=== PATIENT | female | born 1980 | race Caucasian/White ===

== ENCOUNTER → 2019-08-15 | Outpatient (CLI) | payer OTHER ==
[2019-08-15] VITALS (13 sets, daily range): BP systolic 110–144; BP diastolic 57–83
[~2019-08-15] VITALS: Ht 160 cm; Wt 98.4 kg
[~2019-08-15] MED LIST: AIMOVIG AU70 MG/1 ML SUBQ; AMITRIPTYLINE H25 M3 PO; ATIVAN1 MG PO; GLUCOPHAGE1000 MG PO; NAPROSYN500 MG PO; RIZATRIPTAN5 M1 PO; TOPAMAX 100 MG100 MG PO; TRULICITY0.75 MG/0. SUBQ
[2019-08-15 09:10] LABS: HEMATOCRIT 42.6 % (37.0-47.0); HEMOGLOBIN 14.8 gm/dL (12.0-15.0); MCHC 34.6 g/dL (28.0-37.0); MCV 92.5 fL (80.0-100.0); MPV 6.6 fl. (7.2-11.1); NUCLEATED RBCS 0 /100WBC; PLATELET COUNT* 435 thou/uL (150-400); RBC 4.61 mil/uL (4.20-5.00); RDW-CV 13.4 % (10.5-14.5); WBC 7.6 thou/uL (4.0-11.0)
[2019-08-15 09:23] LABS: CALCIUM 10.1 mg/dL (8.5-10.1); CREATININE 0.8 mg/dL (0.6-1.3); POTASSIUM 3.9 mmol/L (3.5-5.1)
[2019-08-15 09:25] LABS: APTT 22.4 Seconds (25.0-31.3); PROTIME 10.6 Seconds (9.20-11.50)
[2019-08-15 09:45] LABS: ABSOLUTE EOSINOPHILS 0.1 thou/uL (0.0-0.7); ABSOLUTE LYMPHOCYTES 2.7 thou/uL (0.8-5.3); ABSOLUTE MONOCYTES 0.2 thou/uL (0.0-1.2); ABSOLUTE NEUTROPHILS 4.7 thou/uL (1.6-8.1); ATYPICAL LYMPHS 1 %
[2019-08-15 09:47] LABS: PLATELET ESTIMATE ADEQUATE
--- NOTE | 2019-08-28 14:07 | PATH ---
[address] [address] PATHOLOGY RPT PROCEDURE Name: NILA MARIE Room: [facility]#: [id number] Admission: 08/15/19 Date of : 82 Discharge: Report #: [id number] Path Case #: [id number] [facility] Accession Number: [id number] . 01 Material submitted: . PART A: bone - BONE MARROW BIOPSY PART B: bone - BONE MARROW CLOT PART C: bone - BONE MARROW ASPIRATE SLIDES PART D: bone - PERIPHERAL SMEAR PART E: bone - BONE MARROW FLOW . 01 Clinical history: . Thrombocytopenia . A 38-year-old woman with thrombocytosis. . 02 Diagnosis: Bone marrow aspirate, biopsy, cell clot and peripheral blood: - Peripheral blood with mild thrombocytosis. - Normocellular bone marrow with trilineage hematopoiesis, mild (no significant) dyspoiesis and no evidence of lymphoma or acute leukemia. (See comment) . (CLW:michael; 08/22/2019) . . . Special studies report received from [facility], [address] [place] [address], [address], [place], [address], on case [id number], labeled with their number [id number], dated . . Flow Cytometry: Hematologic Neoplasia Assessment . Clinical History . . Indication for Study Evaluation for thrombocytosis . Specimen Bone Marrow . Viability 87% (7AAD exclusion) . Interpretation Bone Marrow: - No evidence for myeloid left shift or an increased blast population. - No evidence for a B-cell or T-cell [place]op[place] [address] PATHOLOGY RPT PROCEDURE Name: NILA MARIE Room: [facility]#: [id number] Admission: 08/15/19 Date of : 82 Discharge: Report #: [id number] Path Case #: [id number] - Loss of CD16 expression in granulocytes. . Comments Loss of CD16 expression on neutrophilic cells can occur in association of increased cellular apoptosis, paroxysmal nocturnal hemoglobinuria (although this should be associated with loss of CD14 on the monocytes which is not the case) and variant polymorphism present in normal individuals leading to absence of CD16 on neutrophils. Although myeloid neoplasm does not typically cause 'isolated' loss of CD16; it is still a consideration since single antigenic aberrancy might be a very early sign of myeloid neoplasm. Correlation with available clinical, laboratory, and morphologic data is recommended. . Populations Analyzed Myeloid Blasts: 0.3% No significant immunophenotypic abnormalities Lymphocytes: 35.5% B-cells: 3.5%, polytypic/polyclonal sIg light chain pattern T-cells: no significant abnormalities of the markers tested CD4+ T-cells: 18.2% (including 1.4% CD57+ cells) CD8+ T-cells: 9.4% (including 2.7% CD57+ cells) CD4:CD8: 1.9 NK cells: 3.2% Neutrophilic Cells: 55% Show loss of CD16 expression. Monocytic Cells: 4.8% No significant abnormalities of the markers tested Eosinophils: 3.7% No relative increase Basophils: 0.6% No relative increase Plasma Cells: 0.0% Few detected; no overt abnormalities of the surface markers tested (plasma cells are typically underrepresented by flow cytometry; cytoplasmic light chains were not assessed) Hematogones: 0.1% Normal B-cell precursors CD45 Negative 0% No significant reactivity with the markers Events/Debris: tested (may represent unlysed red blood cells, erythroid precursors, platelets, debris, etc.) (erythroid precursors may be underrepresented due to sample lysis/processing) . Morphologic Evaluation A slide was reviewed for quality associate purposes only. . Specimen Description Cell Yield: 3.74x10 and 6 . Reagent(s) Used CD2, CD3, CD4, CD5, CD7, CD8, CD10, CD11b, CD13, CD14, CD16, CD19, CD20, CD33, CD34, CD38, CD45, CD56, CD57, CD64, CD117, HLA-DR, kappa, [place] [address] PATHOLOGY RPT PROCEDURE Name: NILA MARIE Room: [facility]#: [id number] Admission: 08/15/19 Date of : 82 Discharge: Report #: [id number] Path Case #: [id number] at [facility]. Vilma Jordan MD Pathologist . . Intended Use Flow cytometry is optimally used to immunophenotypically characterize abnormal populations when they are detected. Negative flow cytometry results do not exclude lymphoma or neoplasia. Possible false negative flow cytometry results may occur in, but are not limited to, the following: neoplastic cells in Hodgkin lymphoma are not typically adequately represented by routine clinical flow cytometry; neoplastic cells may be lost or inadequately represented due to degeneration, sample processing, sampling artifact, or patchy involvement; plasma cells are typically underrepresented by flow cytometry; immature cells/blasts may be underrepresented due to hemodilution; myeloproliferative disorders and low grade myelodysplasia may not have immunophenotypic abnormalities or increased blasts. Correlation with all available clinical, laboratory, and morphologic data is always necessary to assess for the possibility of false negative flow cytometry results and to establish a diagnosis. Each marker in this analysis was used to assess for potential antigenic abnormalities or to evaluate detected abnormalities. . Disclaimer(s) This test was performed at [facility]. at [address] [facility] [address], [place], [address] - Storage Receipt Poster: Jacky Graham MD. [facility] is a business unit of [employer] a wholly-owned subsidiary of [employer]. . Any image or images that accompany this report are solar sales representative images only and should not be used to render a diagnosis. . This test was developed and its performance characteristics determined by [facility]. It has not been cleared or approved by the Food and Drug Administration. . For inquiries, the physician may contact Lab: [phone] . A complete copy of the report is on file. . Professional services performed by [employer]. at [address], [place] [address]. Technical services performed by [employer]. at [address], [place] [address]. . (CLW:mahogany 08/19/2019) [address] [address] PATHOLOGY RPT PROCEDURE Name: NILA MARIE Room: [facility].#: [id number] Admission: 08/15/19 Date of : 82 Discharge: Report #: [id number] Path Case #: [id number] . . [facility] 08/22/2019 1313 Local . 02 Comment: Overall, the bone marrow is normocellular for the patient's age with trilineage hematopoiesis, mild (no significant) dyspoiesis and no evidence of lymphoma or acute leukemia. There is no morphologic evidence for a myeloproliferative neoplasm. Correlation with clinical history, additional laboratory data and cytogenetics is recommended. . (CLW:mmkenna; 08/22/2019) . 02 Addendum: . Special studies report received from [facility], [address] [place] [address], [address], [place], [address], on case [id number], labeled with their number [id number], dated 08/26/2019. . Cytogenetic Analysis Report . RESULT: Normal Female Karyotype 46,XX(20) . Specimen Type: Bone Marrow . Indication for Study: Thrombocytosis . INTERPRETATION: Cytogenetic analysis revealed no evidence of an acquired clonal abnormality. These findings should be interpreted in the context of clinical and pathologic findings. . See Flow Cytometry report [id number] for further information. . Number of Metaphases Counted: 20 Banding: G-banding Number of Metaphase Cells Analyzed: 20 Band Level: 375 Number of Metaphase Cells Karyotyped: 2 Cultures Established: 24/48 hour unstimulated . at [facility]. Caridad Guzmán, Ph.D., [facility] Director of Cytogenetics and Molecular Oncology . . Disclaimer This Test was performed by [facility]. at [address] [place] [address], [facility] [place] [address] PATHOLOGY RPT PROCEDURE Name: NILA MARIE Room: [facility]#: [id number] Admission: 08/15/19 Date of : 82 Discharge: Report #: [id number] Path Case #: [id number] [facility] is a business unit of [employer] a wholly-owned subsidiary of [employer]. . . Any image(s) that accompany this report is/are a solar sales representative image(s) only and should not be used to render a diagnosis. . Based on the resolution of this study, standard cytogenetic methodology does not routinely detect subtle or sub-microscopic rearrangements or low level mosaicism. . A complete copy of the report is on file. . Professional services performed by [employer]. at [address], [place] [address]. Technical services performed by [employer]. at [address], [place] [address]. . (MLK:amj 08/26/2019) . . . AZJ/08/26/2019 Addendum Electronically Signed by Mirza Hernandez MD, Pathologist . 02 Electronically signed: . Malena Garcia MD, Pathologist NPI- [id number] . 01 Gross description: . A. Received in formalin labeled "Nila aMrie, core, BM," is a single needle core of wise bone measuring 0.8 cm in length and 0.2 cm in diameter. The specimen is submitted entirely in cassette A1, following decalcification. . B. Received in formalin labeled "Nila Marie, clot," is an aggregate of dark wise blood clot measuring 3.0 x 1.8 x 0.7 cm. The specimen is filtered and entirely submitted in cassette B1 and B2. (TSD; 08/15/2019) TOB/TOB 08/23/2019 0048 Local . 02 Microscopic: . CBC Data (08/15/19): WBC 7,600 /uL, RBC 4.61, hemoglobin 14.8 g/dL, hematocrit 42.6%, MCV 92.5 fL, MCH 32.0 pg, MCHC 34.6 g/dL, RDW 13.4%, and platelet count 435,000 /uL. White blood cell differential: segs 61%, bands 1%, lymphs 34%, monos 2%, eos 1%, and atypical lymphs 1%. . Peripheral Blood Smear: [place] [address] PATHOLOGY RPT PROCEDURE Name: NILA MARIE Room: [facility]#: [id number] Admission: 08/15/19 Date of : 82 Discharge: Report #: [id number] Path Case #: [id number] Cytomorphological examination of the Moncada's stained peripheral blood smear confirms the provided data. Red blood cells are normocytic and are without significant anisopoikilocytosis. White blood cells are predominantly segmented neutrophils and are without significant dyspoiesis or significant left shift. Lymphocytes are predominantly small, round, and mature appearing with condensed chromatin and scant cytoplasm with admixed large granular lymphocytes. On scanning, no markedly atypical lymphoid cells are seen. Monocytes are mature. Platelets are adequate (mildly increased) in number and mainly normal in morphology with rare larger platelets noted. . Aspirate Smears: Cytomorphological examination of the Moncada's stained aspirate smears shows spicules present. The overall cellularity is approximately 70%. The myeloid to erythroid ratio is 2:1. Full myeloid maturation is identified and is without significant dyspoiesis. Erythroid maturation is mildly dyserythropoietic with irregular nuclear contours. In a 500 cell differential, there are 2% blasts (no Juan Alberto rods are seen), 57% more differentiated myeloids, 23% erythroid precursors, 16% lymphocytes and 2% plasma cells. Megakaryocytes are proportional in number and both normal and abnormal in morphology with variable sizes and nuclear abnormalities. No lymphoid aggregates or markedly atypical lymphoid cells are seen. Plasma cells are without atypia. Iron stain of the aspirate smear shows 0/4+ iron positivity with only rare disrupted spicules present. No ringed sideroblasts are identified. . Core Biopsy and Cell Clot: The decalcified bone marrow core biopsy is adequate. The bone marrow is normocellular with an overall cellularity of approximately 70%. Significant aspiration artifact is noted. The myeloid to erythroid ratio is 2:1. Myeloid and erythroid maturation are without significant dyspoiesis. Megakaryocytes are normal in number and both normal and abnormal in morphology. No lymphoid aggregates or markedly atypical lymphoid cells are seen. Bony trabeculae and blood vessels are unremarkable. The cell clot has spicules present that are similar in cellularity and differential morphology as previously described. . Properly controlled special stains are performed. . Block A1: Iron - 0/4+ iron positivity; Reticulin - No significant reticulin fibrosis. . Block B1: Iron - 1/4+ iron positivity with spicules present. . Flow Cytometry: Flow cytometric immunophenotypic analysis was performed at [facility]. The diagnosis is "no evidence for myeloid [place] [address] PATHOLOGY RPT PROCEDURE Name: NILA MARIE Room: [facility]#: [id number] Admission: 08/15/19 Date of : 82 Discharge: Report #: [id number] Path Case #: [id number] increased blast population, no evidence for a B-cell or T-cell lymphoproliferative disorder, lots of CD16 expression and granulocytes." There are 0.3% myeloid blasts. There are 35.5% lymphocytes. Of the lymphocytes, there are 3.5% polyclonal B-cells. T-cells have a CD4/CD8 ratio of 1.9 and no aberrant T-cell antigen expression. There is 55% granulocytes that show loss of CD16 expression. Please see separate flow cytometry report from [facility] ([id number]). . Cytogenetics Analysis: Cytogenetic chromosomal analysis is pending at [facility] ([id number]). . (CLW:mml; 08/22/2019) . 02 Pathologist provided ICD-10: D47.3 . 02 CPT . 967480, 925185, 622260, 059306, 172699, 072595, 096805, 310814, 000020 Specimen Comment: A courtesy copy of this report has been sent to [phone], [phone] Specimen Comment: [phone], Specimen Comment: Report sent to ,DR HUSAIN / DR LOWE Specimen Comment: A duplicate report has been generated due to demographic updates. Performed at: 01 [facility] [address] [id number] MD Hamzah Johnson MD Phone: [phone] Performed at: 02 [facility] [address] [id number] MD Riley Ramsey MD Phone: [phone]
== END | disposition home or self-care (01) ==
LOC: M.CT 08-14 09:00 → M.INT 08-14 11:00 → M.CT 08:18
PROVIDERS: Radiology Diagnostic Radiology
DX: D47.3 Essential (hemorrhagic) thrombocythemia (principal); D75.89 Other specified diseases of blood and blood-forming organs; D70.4 Cyclic neutropenia; F41.9 Anxiety disorder, unspecified; F32.9 Major depressive disorder, single episode, unspecified; Z98.890 Other specified postprocedural states; Z79.899 Other long term (current) drug therapy; Z88.8 Allergy status to other drugs, medicaments and biological substances

== ENCOUNTER 2019-09-17 00:25 | Emergency (ER) | payer OTHER ==
[~2019-09-17] VITALS: Ht 160 cm; Wt 99.8 kg
[2019-09-17 01:32] LABS: ABSOLUTE EOSINOPHILS 0.1 thou/uL (0.0-0.7); ABSOLUTE LYMPHOCYTES 2.6 thou/uL (0.8-5.3); ABSOLUTE MONOCYTES 0.8 thou/uL (0.0-1.2); BASOPHILS 0.4 %; EOSINOPHILS 1.3 %; HEMATOCRIT 39.8 % (37.0-47.0); HEMOGLOBIN 13.6 gm/dL (12.0-15.0); LYMPHOCYTES 30.8 %; MCH 31.3 pg (26.0-34.0); MCHC 34.3 g/dL (28.0-37.0); MCV 91.4 fL (80.0-100.0); MPV 7.2 fl. (7.2-11.1); NUCLEATED RBCS 0 /100WBC; PLATELET COUNT* 387 thou/uL (150-400); POLYS 58.5 %; RBC 4.35 mil/uL (4.20-5.00); WBC 8.5 thou/uL (4.0-11.0)
[2019-09-17 01:36] LABS: CALCIUM 8.2 mg/dL (8.5-10.1); CREATININE 0.7 mg/dL (0.6-1.3); POTASSIUM 4.4 mmol/L (3.5-5.1)
[2019-09-17 01:41] LABS: ALBUMIN 3.8 g/dL (3.4-5.0); TOTAL BILIRUBIN 0.3 mg/dL (<0.1-1.0)
[2019-09-17 02:21] VITALS: BP 95/62
== END 2019-09-17 02:21 | disposition home or self-care (01) ==
LOC: M.ERS 00:25
PROVIDERS: Family Medicine
DX: G43.909 Migraine, unspecified, not intractable, without status migrainosus (principal); Z98.890 Other specified postprocedural states; Z88.8 Allergy status to other drugs, medicaments and biological substances

== ENCOUNTER → 2019-09-25 | Outpatient (CLI) | payer OTHER ==
[2019-09-25 07:44] LABS: ABSOLUTE LYMPHOCYTES 1.7 thou/uL (0.8-5.3); ABSOLUTE MONOCYTES 0.5 thou/uL (0.0-1.2); ABSOLUTE NEUTROPHILS 5.3 thou/uL (1.6-8.1); BASOPHILS 0.3 %; EOSINOPHILS 0.5 %; HEMATOCRIT 41.8 % (37.0-47.0); HEMOGLOBIN 14.4 gm/dL (12.0-15.0); LYMPHOCYTES 22.5 %; MCH 31.6 pg (26.0-34.0); MCHC 34.5 g/dL (28.0-37.0); MCV 91.8 fL (80.0-100.0); MONOCYTES 6.3 %; MPV 6.8 fl. (7.2-11.1); NUCLEATED RBCS 0 /100WBC; PLATELET COUNT* 417 thou/uL (150-400); POLYS 70.4 %; RBC 4.56 mil/uL (4.20-5.00); RDW-CV 13.2 % (10.5-14.5); WBC 7.5 thou/uL (4.0-11.0)
[2019-09-25 07:55] LABS: ALKALINE PHOSPHATASE 74 U/L (46-116); ANION GAP 10 mmol/L (7-16); BUN 12 mg/dL (7-18); CALCIUM 8.7 mg/dL (8.5-10.1); CHLORIDE 104 mmol/L (98-107); CHOLESTEROL 165 mg/dL (<200); CO2 26 mmol/L (21-32); CREATININE 0.8 mg/dL (0.6-1.3); GLUCOSE 102 mg/dL (70-99); HDL CHOLESTEROL 39 mg/dL (>40); LDL CHOLESTEROL 108 mg/dL (<100); POTASSIUM 4.1 mmol/L (3.5-5.1); SGOT 19 U/L (15-37); SGPT 29 U/L (30-65); SODIUM 140 mmol/L (136-145); TC:HDL 4.2 Ratio (Not establshd); TOTAL BILIRUBIN 0.6 mg/dL (<0.1-1.0); TOTAL PROTEIN 7.9 g/dL (6.4-8.2); TRIGLYCERIDE 93 mg/dL (<150); VLDL 19 mg/dL (<40)
[2019-09-25 07:56] LABS: SERUM ASSESSMENT Clear
[2019-09-26 02:08] LABS: GLYCOHEMOGLOBIN (HGB A1C) 5.6 % (4.8-5.6)
== END ==
LOC: M.LAB 07:21
PROVIDERS: Family Medicine
DX: J01.90 Acute sinusitis, unspecified (principal); R19.5 Other fecal abnormalities; K62.5 Hemorrhage of anus and rectum; E11.9 Type 2 diabetes mellitus without complications; G43.009 Migraine without aura, not intractable, without status migrainosus

== ENCOUNTER → 2019-11-27 | Outpatient (CLI) | payer OTHER | LOC: M.LAB 12:21 | PROVIDERS: ATTEND Family Medicine | DX: Z03.818 Encounter for observation for suspected exposure to other biological agents ruled out (principal) ==

== ENCOUNTER → 2020-01-01 | Outpatient (CLI) | payer OTHER ==
[2020-01-01 13:56] LABS: ABSOLUTE LYMPHOCYTES 2.4 thou/uL (0.8-5.3); ABSOLUTE MONOCYTES 0.4 thou/uL (0.0-1.2); BASOPHILS 0.6 %; EOSINOPHILS 0.5 %; HEMATOCRIT 42.2 % (37.0-47.0); HEMOGLOBIN 14.6 gm/dL (12.0-15.0); LYMPHOCYTES 34.5 %; MCH 31.8 pg (26.0-34.0); MCHC 34.6 g/dL (28.0-37.0); MCV 91.9 fL (80.0-100.0); MONOCYTES 6.4 %; NUCLEATED RBCS 0 /100WBC; PLATELET COUNT* 457 thou/uL (150-400); RDW-CV 12.9 % (10.5-14.5); WBC 6.9 thou/uL (4.0-11.0)
[2020-01-01 14:22] LABS: % SATURATION 21 % (20-39); IRON 64 ug/dL (50-175)
== END ==
LOC: M.LAB 13:11
PROVIDERS: Internal Medicine Hematology & Oncology
DX: D47.3 Essential (hemorrhagic) thrombocythemia (principal); E61.1 Iron deficiency

== ENCOUNTER → 2020-02-19 | Outpatient (CLI) | payer OTHER | LOC: M.LAB 11:11 | DX: O34.81 Maternal care for other abnormalities of pelvic organs, first trimester (principal); O34.41 Maternal care for other abnormalities of cervix, first trimester; N83.202 Unspecified ovarian cyst, left side; Z3A.01 Less than 8 weeks gestation of pregnancy; Z64.0 Problems related to unwanted pregnancy ==

== ENCOUNTER 2020-03-18 13:30 | Emergency (ER) | payer OTHER ==
[~2020-03-18] VITALS: Ht 157.5 cm; Wt 96.2 kg
[2020-03-18] MEDS ORDERED: TIZANIDINE HCL 22 M1 PO (13:41)
[2020-03-18] MEDS ORDERED: LEVO-T50 MCG PO (13:41)
[2020-03-18] MEDS ORDERED: SLOW FE142 MG PO (13:41)
[2020-03-18 14:31] LABS: ABSOLUTE LYMPHOCYTES 1.9 thou/uL (0.8-5.3); ABSOLUTE MONOCYTES 0.4 thou/uL (0.0-1.2); ABSOLUTE NEUTROPHILS 4.2 thou/uL (1.6-8.1); BASOPHILS 0.5 %; EOSINOPHILS 0.4 %; HEMATOCRIT 42.8 % (37.0-47.0); HEMOGLOBIN 14.6 gm/dL (12.0-15.0); MCH 31.6 pg (26.0-34.0); MCHC 34.2 g/dL (28.0-37.0); MCV 92.4 fL (80.0-100.0); MONOCYTES 6.2 %; MPV 7.1 fl. (7.2-11.1); NUCLEATED RBCS 0 /100WBC; PLATELET COUNT* 414 thou/uL (150-400); POLYS 63.9 %; RBC 4.63 mil/uL (4.20-5.00); RDW-CV 13.3 % (10.5-14.5); WBC 6.5 thou/uL (4.0-11.0)
[2020-03-18 14:38] LABS: CALCIUM 9.3 mg/dL (8.5-10.1); CREATININE 0.9 mg/dL (0.6-1.3); POTASSIUM 4.7 mmol/L (3.5-5.1)
[2020-03-18 14:43] LABS: TOTAL BILIRUBIN 0.4 mg/dL (<0.1-1.0); TOTAL PROTEIN 7.8 g/dL (6.4-8.2)
[2020-03-18] MEDS ORDERED: HYDROXYZINE PAM25 M1 PO (16:45)
[2020-03-18] MEDS ORDERED: MEDROLDOSEPACK PO (16:45)
[2020-03-18 16:56] VITALS: BP 136/97
== END 2020-03-18 16:57 | disposition home or self-care (01) ==
LOC: M.ERS 13:30
PROVIDERS: Personal Emergency Response Attendant
DX: R22.0 Localized swelling, mass and lump, head (principal); T50.995A Adverse effect of other drugs, medicaments and biological substances, initial encounter; G43.909 Migraine, unspecified, not intractable, without status migrainosus; Z98.890 Other specified postprocedural states; Z88.8 Allergy status to other drugs, medicaments and biological substances; Y92.89 Other specified places as the place of occurrence of the external cause

== ENCOUNTER → 2020-04-06 | Outpatient (CLI) | payer OTHER ==
[~2020-04-06] MED LIST changes: +HYDROXYZINE PAM25 M1 PO; +LEVO-T50 MCG PO; +MEDROLDOSEPACK PO; +SLOW FE142 MG PO; +TIZANIDINE HCL 22 M1 PO
== END ==
LOC: M.LAB 12:03
PROVIDERS: ATTEND Internal Medicine Gastroenterology
DX: Z01.812 Encounter for preprocedural laboratory examination (principal); Z20.828 Contact with and (suspected) exposure to other viral communicable diseases; K31.84 Gastroparesis

== ENCOUNTER 2020-05-25 07:06 | Emergency (ER) | payer OTHER ==
[~2020-05-25] VITALS: Ht 160 cm; Wt 93.9 kg
[2020-05-25] MEDS ORDERED: ZOFRAN4 MG PO (07:21)
[2020-05-25] MEDS ORDERED: BENTYL 10 MG CA10 M1 PO (07:21)
[2020-05-25] MEDS ORDERED: COMPAZINE10 MG PO (07:21)
[2020-05-25] MEDS ORDERED: ATIVAN0.5 M1 PO (07:22)
[2020-05-25] MEDS ORDERED: AMBIEN CR12.5 MG PO (07:22)
[2020-05-25 08:01] LABS: URINE BILIRUBIN NEGATIVE (Negative); URINE BLOOD TRACE (Negative); URINE CLARITY CLEAR; URINE COLOR YELLOW; URINE GLUCOSE-RANDOM NEGATIVE (Negative); URINE KETONES NEGATIVE (Negative); URINE LEUKOCYTES-REFLEX NEGATIVE (Negative); URINE NITRITE-REFLEX NEGATIVE (Negative); URINE PROTEIN NEGATIVE (Negative); URINE SPECIFIC GRAVITY <= 1.005 (1.005-1.030); URINE UROBILINOGEN 0.2 E.U./dl (0.2-1.0)
[2020-05-25 08:07] LABS: ABSOLUTE LYMPHOCYTES 1.8 thou/uL (0.8-5.3); ABSOLUTE MONOCYTES 0.7 thou/uL (0.0-1.2); ABSOLUTE NEUTROPHILS 5.4 thou/uL (1.6-8.1); BASOPHILS 0.6 %; EOSINOPHILS 0.5 %; HEMATOCRIT 46.2 % (37.0-47.0); HEMOGLOBIN 15.5 gm/dL (12.0-15.0); LYMPHOCYTES 22.5 %; MCH 30.5 pg (26.0-34.0); MCHC 33.6 g/dL (28.0-37.0); MCV 90.7 fL (80.0-100.0); MPV 7.1 fl. (7.2-11.1); NUCLEATED RBCS 0 /100WBC; PLATELET COUNT* 364 thou/uL (150-400); POLYS 67.4 %; RBC 5.09 mil/uL (4.20-5.00); RDW-CV 13.2 % (10.5-14.5)
[2020-05-25 08:15] LABS: CALCIUM 10.1 mg/dL (8.5-10.1); POTASSIUM 4.1 mmol/L (3.5-5.1)
[2020-05-25 08:20] LABS: ALBUMIN 4.1 g/dL (3.4-5.0); TOTAL BILIRUBIN 0.7 mg/dL (<0.1-1.0); TOTAL PROTEIN 7.9 g/dL (6.4-8.2)
[2020-05-25 09:46] VITALS: BP 122/92
--- NOTE | 2020-05-25 09:58 | EKG ---
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
== END 2020-05-25 09:47 | disposition home or self-care (01) ==
LOC: M.ERS 07:06
PROVIDERS: Family Medicine
DX: R10.13 Epigastric pain (principal); R11.2 Nausea with vomiting, unspecified; R10.30 Lower abdominal pain, unspecified; G43.909 Migraine, unspecified, not intractable, without status migrainosus; E11.43 Type 2 diabetes mellitus with diabetic autonomic (poly)neuropathy; K31.84 Gastroparesis; Z88.8 Allergy status to other drugs, medicaments and biological substances; Z98.890 Other specified postprocedural states; Z98.51 Tubal ligation status

== ENCOUNTER → 2020-06-05 | Outpatient (CLI) | payer OTHER ==
[~2020-06-05] MED LIST changes: +AMBIEN CR12.5 MG PO; +ATIVAN0.5 M1 PO; +BENTYL 10 MG CA10 M1 PO; +COMPAZINE10 MG PO; +ZOFRAN4 MG PO
[2020-06-05 07:37] LABS: ABSOLUTE EOSINOPHILS 0.1 thou/uL (0.0-0.7); ABSOLUTE LYMPHOCYTES 1.5 thou/uL (0.8-5.3); ABSOLUTE MONOCYTES 0.6 thou/uL (0.0-1.2); ABSOLUTE NEUTROPHILS 5.7 thou/uL (1.6-8.1); BASOPHILS 0.6 %; EOSINOPHILS 0.6 %; HEMATOCRIT 45.5 % (37.0-47.0); HEMOGLOBIN 15.3 gm/dL (12.0-15.0); LYMPHOCYTES 18.9 %; MCH 31.1 pg (26.0-34.0); MCHC 33.7 g/dL (28.0-37.0); MCV 92.2 fL (80.0-100.0); MONOCYTES 7.6 %; NUCLEATED RBCS 0 /100WBC; PLATELET COUNT* 403 thou/uL (150-400); POLYS 72.3 %; RBC 4.93 mil/uL (4.20-5.00); WBC 7.9 thou/uL (4.0-11.0)
[2020-06-05 07:46] LABS: CALCIUM 9.4 mg/dL (8.5-10.1); CREATININE 0.7 mg/dL (0.6-1.3); POTASSIUM 4.1 mmol/L (3.5-5.1)
[2020-06-06 02:06] LABS: GLYCOHEMOGLOBIN (HGB A1C) 5.7 % (4.8-5.6)
== END ==
LOC: M.LAB 07:08
PROVIDERS: ATTEND Internal Medicine Gastroenterology
DX: K31.84 Gastroparesis (principal)

== ENCOUNTER → 2020-09-11 | Outpatient (CLI) | payer OTHER | LOC: M.LAB 16:03 | PROVIDERS: ATTEND Internal Medicine Gastroenterology | DX: Z01.812 Encounter for preprocedural laboratory examination (principal); Z20.822 Contact with and (suspected) exposure to COVID-19; K31.84 Gastroparesis ==

== ENCOUNTER → 2020-10-07 | Outpatient (CLI) | payer OTHER | LOC: M.NUC 09-03 15:02 → M.LAB 06:49 → M.NUC 06:49 | DX: R11.2 Nausea with vomiting, unspecified (principal) ==

== ENCOUNTER → 2020-11-05 | Outpatient (CLI) | payer OTHER | LOC: M.CT 11:49 | PROVIDERS: ATTEND Family Medicine | DX: J98.11 Atelectasis (principal); R07.1 Chest pain on breathing; R79.81 Abnormal blood-gas level ==

== ENCOUNTER 2020-11-23 12:28 | Emergency (ER) | payer OTHER ==
[~2020-11-23] VITALS: Ht 157.5 cm; Wt 85.7 kg
[2020-11-23] MEDS ORDERED: REMERON15 M1 PO (12:43)
[2020-11-23 13:36] LABS: URINE BILIRUBIN NEGATIVE (Negative); URINE BLOOD NEGATIVE (Negative); URINE CLARITY CLEAR; URINE COLOR YELLOW; URINE GLUCOSE-RANDOM NEGATIVE (Negative); URINE KETONES NEGATIVE (Negative); URINE LEUKOCYTES-REFLEX NEGATIVE (Negative); URINE NITRITE-REFLEX NEGATIVE (Negative); URINE PROTEIN NEGATIVE (Negative); URINE SPECIFIC GRAVITY <= 1.005 (1.005-1.030); URINE UROBILINOGEN 0.2 E.U./dl (0.2-1.0)
[2020-11-23 13:39] LABS: AMP/METHAMP Negative (Negative); BARBITURATES Negative (Negative); BENZODIAZEPINES Negative (Negative); COCAINE Negative (Negative); METHADONE Negative (Negative); OPIATES Negative (Negative); PCP Negative (Negative); THC Negative (Negative)
[2020-11-23 13:47] LABS: ABSOLUTE LYMPHOCYTES 1.7 thou/uL (0.8-5.3); ABSOLUTE MONOCYTES 0.7 thou/uL (0.0-1.2); ABSOLUTE NEUTROPHILS 4.6 thou/uL (1.6-8.1); BASOPHILS 0.3 %; EOSINOPHILS 0.4 %; HEMOGLOBIN 14.4 gm/dL (12.0-15.0); LYMPHOCYTES 24.2 %; MCH 31.2 pg (26.0-34.0); MCHC 33.6 g/dL (28.0-37.0); MONOCYTES 9.5 %; MPV 6.7 fl. (7.2-11.1); NUCLEATED RBCS 0 /100WBC; PLATELET COUNT* 369 thou/uL (150-400); POLYS 65.6 %; RBC 4.63 mil/uL (4.20-5.00); RDW-CV 12.9 % (10.5-14.5)
[2020-11-23 13:57] LABS: CALCIUM 9.2 mg/dL (8.5-10.1); CREATININE 0.8 mg/dL (0.6-1.3); POTASSIUM 3.8 mmol/L (3.5-5.1)
[2020-11-23 14:07] LABS: ALBUMIN 4.1 g/dL (3.4-5.0); MAGNESIUM 2.1 mg/dL (1.8-2.4); TOTAL BILIRUBIN 0.4 mg/dL (<0.1-1.0); TOTAL PROTEIN 7.9 g/dL (6.4-8.2)
[2020-11-23] MEDS ORDERED: NORCO5 PO (16:17)
[2020-11-23] MEDS ORDERED: BENTYL 10 MG CA10 M1 PO (16:17)
[2020-11-23 16:40] VITALS: BP 118/73
--- NOTE | 2020-11-24 14:13 | EKG ---
[place] [address] ELECTROCARDIOGRAM REPORT Name: NILA BOWLES Room: 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
== END 2020-11-23 16:40 | disposition home or self-care (01) ==
LOC: M.ERS 12:28
PROVIDERS: Nurse Practitioner Family
DX: N88.9 Noninflammatory disorder of cervix uteri, unspecified (principal); R07.89 Other chest pain; R10.13 Epigastric pain; G43.909 Migraine, unspecified, not intractable, without status migrainosus; E11.43 Type 2 diabetes mellitus with diabetic autonomic (poly)neuropathy; K31.84 Gastroparesis; Z98.51 Tubal ligation status; Z88.8 Allergy status to other drugs, medicaments and biological substances; Z98.890 Other specified postprocedural states; Z79.899 Other long term (current) drug therapy

== ENCOUNTER → 2020-12-01 | Outpatient (CLI) | payer OTHER ==
[~2020-12-01] MED LIST changes: +NORCO5 PO; +REMERON15 M1 PO
[2020-12-01 07:39] LABS: ABSOLUTE LYMPHOCYTES 1.5 thou/uL (0.8-5.3); ABSOLUTE MONOCYTES 0.6 thou/uL (0.0-1.2); ABSOLUTE NEUTROPHILS 3.4 thou/uL (1.6-8.1); BASOPHILS 0.3 %; EOSINOPHILS 0.7 %; HEMOGLOBIN 14.4 gm/dL (12.0-15.0); LYMPHOCYTES 27.5 %; MCH 30.9 pg (26.0-34.0); MCHC 33.4 g/dL (28.0-37.0); MCV 92.6 fL (80.0-100.0); MONOCYTES 10.6 %; MPV 6.7 fl. (7.2-11.1); NUCLEATED RBCS 0 /100WBC; PLATELET COUNT* 357 thou/uL (150-400); POLYS 60.9 %; RBC 4.65 mil/uL (4.20-5.00); RDW-CV 12.7 % (10.5-14.5); WBC 5.6 thou/uL (4.0-11.0)
[2020-12-01 07:50] LABS: ALKALINE PHOSPHATASE 81 U/L (46-116); ANION GAP 9 mmol/L (7-16); BUN 14 mg/dL (7-18); CALCIUM 8.9 mg/dL (8.5-10.1); CHLORIDE 102 mmol/L (98-107); CHOLESTEROL 152 mg/dL (<200); CO2 28 mmol/L (21-32); CREATININE 0.8 mg/dL (0.6-1.3); GLUCOSE 92 mg/dL (70-99); HDL CHOLESTEROL 46 mg/dL (>40); LDL CHOLESTEROL 83 mg/dL (<100); POTASSIUM 3.8 mmol/L (3.5-5.1); SERUM ASSESSMENT Clear; SGOT 22 U/L (15-37); SGPT 39 U/L (30-65); SODIUM 139 mmol/L (136-145); TC:HDL 3.3 Ratio (Not establshd); TOTAL BILIRUBIN 0.5 mg/dL (<0.1-1.0); TOTAL PROTEIN 8.1 g/dL (6.4-8.2); TRIGLYCERIDE 116 mg/dL (<150); VLDL 23 mg/dL (<40)
[2020-12-01 23:23] LABS: GLYCOHEMOGLOBIN (HGB A1C) 5.5 % (4.8-5.6)
== END ==
LOC: M.LAB 07:10
PROVIDERS: ATTEND Family Medicine
DX: K31.84 Gastroparesis (principal); D47.3 Essential (hemorrhagic) thrombocythemia; F41.9 Anxiety disorder, unspecified; G43.009 Migraine without aura, not intractable, without status migrainosus; R10.84 Generalized abdominal pain; G47.00 Insomnia, unspecified; F51.5 Nightmare disorder; F43.10 Post-traumatic stress disorder, unspecified; E03.9 Hypothyroidism, unspecified; D50.9 Iron deficiency anemia, unspecified

== ENCOUNTER → 2020-12-14 | Outpatient (CLI) | payer OTHER | LOC: M.ULTRA 12-02 16:00 | PROVIDERS: ATTEND Family Medicine | DX: Z01.419 Encounter for gynecological examination (general) (routine) without abnormal findings (principal); N88.8 Other specified noninflammatory disorders of cervix uteri; N92.0 Excessive and frequent menstruation with regular cycle ==

== ENCOUNTER → 2021-02-03 | Outpatient (CLI) | payer OTHER | LOC: M.LAB 12:55 | PROVIDERS: ATTEND Family Medicine | DX: E03.9 Hypothyroidism, unspecified (principal) ==

== ENCOUNTER 2021-02-15 08:43 | Emergency (ER) | payer OTHER ==
[~2021-02-15] VITALS: Ht 157.5 cm; Wt 88.0 kg
[~2021-02-15 08:43] MED LIST changes: -CITRATE OF MAG296 M1 PO; -FAMOTIDINE20 MG PO; -WELLBUTRIN XL300 MG PO; -ZOFRAN ODT4 MG DISSOLVE
[2021-02-15] MEDS ORDERED: FAMOTIDINE20 MG PO (09:03)
[2021-02-15] MEDS ORDERED: WELLBUTRIN XL300 MG PO (09:03)
[2021-02-15 09:35] LABS: URINE BILIRUBIN NEGATIVE (Negative); URINE BLOOD NEGATIVE (Negative); URINE CLARITY CLEAR; URINE COLOR YELLOW; URINE GLUCOSE-RANDOM NEGATIVE (Negative); URINE KETONES NEGATIVE (Negative); URINE LEUKOCYTES-REFLEX NEGATIVE (Negative); URINE NITRITE-REFLEX NEGATIVE (Negative); URINE PROTEIN NEGATIVE (Negative); URINE UROBILINOGEN 0.2 E.U./dl (0.2-1.0)
[2021-02-15 09:46] LABS: ABSOLUTE MONOCYTES 0.5 thou/uL (0.0-1.2); ABSOLUTE NEUTROPHILS 3.3 thou/uL (1.6-8.1); BASOPHILS 0.4 %; EOSINOPHILS 0.7 %; HEMATOCRIT 45.4 % (37.0-47.0); HEMOGLOBIN 15.4 gm/dL (12.0-15.0); LYMPHOCYTES 34.1 %; MCH 31.8 pg (26.0-34.0); MCV 93.5 fL (80.0-100.0); MONOCYTES 8.1 %; MPV 6.7 fl. (7.2-11.1); NUCLEATED RBCS 0 /100WBC; PLATELET COUNT* 391 thou/uL (150-400); POLYS 56.7 %; RBC 4.86 mil/uL (4.20-5.00); RDW-CV 12.9 % (10.5-14.5); WBC 5.7 thou/uL (4.0-11.0)
[2021-02-15 10:03] LABS: CALCIUM 8.8 mg/dL (8.5-10.1); CREATININE 0.8 mg/dL (0.6-1.3); POTASSIUM 4.4 mmol/L (3.5-5.1)
[2021-02-15 10:08] LABS: ALBUMIN 4.1 g/dL (3.4-5.0); TOTAL BILIRUBIN 0.4 mg/dL (<0.1-1.0); TOTAL PROTEIN 7.8 g/dL (6.4-8.2)
[2021-02-15] MEDS ORDERED: ZOFRAN ODT4 MG DISSOLVE (11:39)
[2021-02-15] MEDS ORDERED: BENTYL 10 MG CA10 M1 PO (11:39)
[2021-02-15] MEDS ORDERED: CITRATE OF MAG296 M1 PO (11:39)
[2021-02-15 11:51] VITALS: BP 123/70
== END 2021-02-15 11:53 | disposition home or self-care (01) ==
LOC: M.ERS 08:43
PROVIDERS: Emergency Medicine Emergency Medical Services
DX: K59.00 Constipation, unspecified (principal); G43.909 Migraine, unspecified, not intractable, without status migrainosus; E11.43 Type 2 diabetes mellitus with diabetic autonomic (poly)neuropathy; K31.84 Gastroparesis; Z98.890 Other specified postprocedural states; Z88.8 Allergy status to other drugs, medicaments and biological substances

== ENCOUNTER → 2021-02-15 | Outpatient (CLI) | payer OTHER ==
[~2021-02-15] MED LIST changes: +CITRATE OF MAG296 M1 PO; +FAMOTIDINE20 MG PO; +WELLBUTRIN XL300 MG PO; +ZOFRAN ODT4 MG DISSOLVE
== END ==
LOC: M.ULTRA 07:30
PROVIDERS: ATTEND Nurse Practitioner
DX: R10.13 Epigastric pain (principal); R11.2 Nausea with vomiting, unspecified

== ENCOUNTER → 2021-02-24 | Outpatient (CLI) | payer OTHER ==
[~2021-02-24] MED LIST changes: +CITRATE OF MAG296 M1 PO; +FAMOTIDINE20 MG PO; +WELLBUTRIN XL300 MG PO; +ZOFRAN ODT4 MG DISSOLVE
== END ==
LOC: M.CT 14:43
PROVIDERS: ATTEND Nurse Practitioner
DX: K76.0 Fatty (change of) liver, not elsewhere classified (principal); Z90.49 Acquired absence of other specified parts of digestive tract; R93.89 Abnormal findings on diagnostic imaging of other specified body structures; R11.0 Nausea

== ENCOUNTER → 2021-05-12 | Outpatient (CLI) | payer OTHER | LOC: M.CT 04-28 15:00 | PROVIDERS: ATTEND Family Medicine | DX: M47.816 Spondylosis without myelopathy or radiculopathy, lumbar region (principal); M47.817 Spondylosis without myelopathy or radiculopathy, lumbosacral region; M48.07 Spinal stenosis, lumbosacral region; M48.05 Spinal stenosis, thoracolumbar region; M48.061 Spinal stenosis, lumbar region without neurogenic claudication ==

== ENCOUNTER → 2021-05-19 | Outpatient (CLI) | payer OTHER | LOC: M.RAD 11:50 | PROVIDERS: ATTEND Family Medicine | DX: Z12.31 Encounter for screening mammogram for malignant neoplasm of breast (principal) ==

== ENCOUNTER → 2021-07-05 | Outpatient (CLI) | payer OTHER ==
[2021-07-05 11:33] LABS: ABSOLUTE LYMPHOCYTES 1.7 thou/uL (0.8-5.3); ABSOLUTE MONOCYTES 0.4 thou/uL (0.0-1.2); ABSOLUTE NEUTROPHILS 3.4 thou/uL (1.6-8.1); BASOPHILS 0.5 %; EOSINOPHILS 0.3 %; HEMATOCRIT 42.4 % (37.0-47.0); HEMOGLOBIN 14.4 gm/dL (12.0-15.0); LYMPHOCYTES 31.6 %; MCH 32.2 pg (26.0-34.0); MCHC 34.1 g/dL (28.0-37.0); MCV 94.5 fL (80.0-100.0); MONOCYTES 6.8 %; MPV 6.6 fl. (7.2-11.1); NUCLEATED RBCS 0 /100WBC; PLATELET COUNT* 406 thou/uL (150-400); POLYS 60.8 %; RBC 4.48 mil/uL (4.20-5.00); RDW-CV 13.6 % (10.5-14.5); WBC 5.5 thou/uL (4.0-11.0)
[2021-07-05 11:42] LABS: CALCIUM 9.4 mg/dL (8.5-10.1); CREATININE 0.8 mg/dL (0.6-1.3); POTASSIUM 4.7 mmol/L (3.5-5.1)
[2021-07-05 11:49] LABS: PROTIME 10.4 Seconds (9.20-11.50)
--- NOTE | 2021-07-05 16:05 | EKG ---
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
== END ==
LOC: M.LAB 10:32
DX: N62 Hypertrophy of breast (principal)

== ENCOUNTER 2021-07-16 20:37 | Emergency (ER) | payer OTHER ==
[~2021-07-16] VITALS: Ht 157.5 cm; Wt 85.7 kg
[2021-07-16] MEDS ORDERED: PERCOCET 5-3251 EACH PO (21:29)
[2021-07-17 00:36] LABS: ABSOLUTE EOSINOPHILS 0.1 thou/uL (0.0-0.7); ABSOLUTE LYMPHOCYTES 2.8 thou/uL (0.8-5.3); ABSOLUTE MONOCYTES 0.8 thou/uL (0.0-1.2); ABSOLUTE NEUTROPHILS 5.1 thou/uL (1.6-8.1); BASOPHILS 0.2 %; EOSINOPHILS 1.1 %; HEMATOCRIT 40.3 % (37.0-47.0); HEMOGLOBIN 13.4 gm/dL (12.0-15.0); LYMPHOCYTES 31.7 %; MCH 31.8 pg (26.0-34.0); MCHC 33.2 g/dL (28.0-37.0); MCV 95.8 fL (80.0-100.0); MONOCYTES 8.8 %; MPV 6.7 fl. (7.2-11.1); NUCLEATED RBCS 0 /100WBC; PLATELET COUNT* 377 thou/uL (150-400); POLYS 58.2 %; RBC 4.21 mil/uL (4.20-5.00); RDW-CV 13.3 % (10.5-14.5); WBC 8.7 thou/uL (4.0-11.0)
[2021-07-17 00:53] LABS: CALCIUM 9.3 mg/dL (8.5-10.1); CREATININE 0.8 mg/dL (0.6-1.3); POTASSIUM 3.8 mmol/L (3.5-5.1)
[2021-07-17 00:59] LABS: PROTIME 9.9 Seconds (9.20-11.50)
[2021-07-17] MEDS ORDERED: CEPHALEXIN500 MG PO (01:37)
[2021-07-17] MEDS ORDERED: NAPROSYN500 MG PO (01:37)
[2021-07-17 01:48] VITALS: BP 114/79
== END 2021-07-17 01:49 | disposition home or self-care (01) ==
LOC: M.ERS 20:37
PROVIDERS: Personal Emergency Response Attendant
DX: I80.8 Phlebitis and thrombophlebitis of other sites (principal); I82.612 Acute embolism and thrombosis of superficial veins of left upper extremity; G43.909 Migraine, unspecified, not intractable, without status migrainosus; F41.9 Anxiety disorder, unspecified; Z79.899 Other long term (current) drug therapy; Z90.49 Acquired absence of other specified parts of digestive tract; Z98.51 Tubal ligation status; Z88.8 Allergy status to other drugs, medicaments and biological substances